=== PATIENT | female | born 1990 | race Caucasian/White ===

== ENCOUNTER 2017-12-05 12:26 | Emergency (ER) | payer SELFPAY ==
[2017-12-05 12:40] VITALS: BMI 20.1
--- NOTE | 2017-12-05 13:14 | PDOC ---
Attending Attestation - Resident Resident Name: Michelle Christian - ED Attending Attestation I have performed the following: I have examined & evaluated the patient, The case was reviewed & discussed with the resident, I agree w/resident's findings & plan, Exceptions are as noted - HPI HPI: 12/05/17 13:12 27y , 2 months late for period, presents with spotting x 2 days bu tnow increased cramping and bleeding. Pt denies any fever/chills, flank pain. has not checked her status at home. on exam pt well appearing, no distress abd soft nontender pelvic exam reveals moderate amount of dark blood in the vaginal vault, os closed, no lesions or other discharge. will r/o /threatened ab vs dub will obtain pelvic US - Physicial Exam PE: 12/05/17 16:41 see above - Medical Decision Making 12/05/17 16:41 pts beta at 9000 US shows pole and IUP without fRH will dc the pt with outpatient x ray developer fu return precautions were discussed
--- NOTE | 2017-12-05 13:20 | PDOC ---
History of Present Illness - General Chief Complaint: Vaginal Bleeding Stated Complaint: VAGINAL BLEEDING () Time Seen by Provider: 12/05/17 12:50 History Source: Patient Exam Limitations: Language Barrier - History of Present Illness Initial Comments: 12/05/17 13:18 27 y/o F (all delivered via , full-term, without complications) presents to the ED c/o vaginal spotting x 2 days. As per pt, she noticed spotting over the past two days, and today, increased bleeding and cramping in her umbilical and suprapubic region. Pt states that her LMP is two months late and she did not use a test at home. Pt is sexually active with and is not on control. First day of her LMP was 10/06/17. Pt states that she has had the same exact sx with her past pregnancies. She also endorses generalized GREY, dizziness and nausea without emesis during this time. Denies fever, chills, or any changes in urinary or bowel function. PMH: as above PsxH: three c-sections meds: denies allergies: NKDA FH: denies SH: denies cigarette, alcohol, or recreational drug use 12/05/17 13:43 Past History - Past Medical History Allergies/Adverse Reactions: Allergies Allergy/AdvReac Type Severity Reaction Status Date / Time No Known Allergies Allergy Verified 12/05/17 12:40 Home Medications: Ambulatory Orders NK [No Known Home Medication] 12/05/17 Asthma: No Cancer: No Cardiac Disorders: No COPD: No Diabetes: No HTN: No Seizures: No Thyroid Disease: No - Reproductive History Is Patient Now?: Yes (#): 4 Para: 3 - Suicide/Smoking/Psychosocial Hx Smoking History: Never smoked Have you smoked in the past 12 months: No Hx Alcohol Use: No Drug/Substance Use Hx: No Substance Use Type: None Hx Substance Use Treatment: No Review of Systems - Review of Systems Able to Perform ROS?: Yes Is the patient limited Kinyarwanda proficient: Yes Cardiac (ROS): Yes: Other (dizziness) : Yes: Other (vaginal bleeding) Neurological: Yes: Headache All Other Systems: Reviewed and Negative *Physical Exam - Vital Signs Last Vital Signs Temp Pulse Resp BP Pulse Ox 98 F 74 18 115/76 99 12/05/17 12:37 12/05/17 12:37 12/05/17 12:37 12/05/17 12:37 12/05/17 12:37 - Physical Exam General Appearance: Yes: Nourished, Other (in no acute distress) HEENT: positive: EOMI, [place] Neck: positive: Lymphadenopathy (R) Respiratory/Chest: positive: Lungs Clear, Normal Breath Sounds Cardiovascular: positive: Regular Rhythm, Regular Rate, S1, S2 Vascular Pulses: Dorsalis-Pedis (R): 2+, Doralis-Pedis (L): 2+ Female Pelvic Exam: positive: cervical os closed, normal adnexa, vaginal bleeding (+blood in vaginal vault) Gastrointestinal/Abdominal: positive: Normal Bowel Sounds, Soft Extremity: positive: Normal Range of Motion Neurologic: 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 Current main differential - . Pt with hx similar sx with all past pregnancies, with blood in vaginal vault. Will check b hcg quant and reassess. Will order the following -CBC with diff -CMP -B hcg quant -UA - in case of asymp bacteruria, will need to tx -Type and screen Will give the following -Zofran 4mg x 1 -Tylenol 650mg PO x 1 12/05/17 14:52 Pt currently 4-5 weeks as per Bhcg quant - ~9269. Informed patient, answered questions. Will go to [facility] Otherwise, CBC, BMP, UA WNL 12/05/17 16:41 US - feta *DC/Admit/Observation/Transfer Diagnosis at time of Disposition: Early stage of , Abdominal pain during in first trimester - Discharge Dispostion Disposition: HOME Condition at time of disposition: Stable Admit: No - Referrals Referrals: Nyla Atkinson MD [Staff Physician] - - Patient Instructions Additional Instructions: You were recently in the hospital because you had vaginal bleeding. We ran lab tests and found that you were . You had an ultrasound done which showed you are 5 weeks . It is early in your to visualize parts of your baby, so we recommend you follow up with an shield installer in a week for another ultrasound. We are giving you a referral for Dr. Walter. The phone number is [phone]. Please start taking vitamins. We will send a prescription to your pharmacy. If you develop more vaginal bleeding, see clots, or develop severe abdominal pain, or fever/chills, please come back to the hospital immediately. Print Language: THAI - Post Discharge Activity
[2017-12-05] MEDS ORDERED: ACETAMINOPHEN 325 MG TABLET (FP) PO ONE (13:37)
[2017-12-05] MEDS ORDERED: ONDANSETRON *ODT* 4 MG TABLET SL ONE (13:37)
[2017-12-05] MEDS ORDERED: ACETAMINOPHEN 325 MG TABLET (FP) ONE (13:53)
[2017-12-05] MEDS ORDERED: ONDANSETRON *ODT* 4 MG TABLET ONE (13:53)
[2017-12-05 13:55] LABS: BASO % 0.4 % (0-2.0); EOS % 0.5 % (0-4.5); HEMATOCRIT 39.4 % (32.4-45.2); LYMPH % 19.4 % (8-40); MCH 29.5 pg (25.7-33.7); MEAN CELL VOLUME 89.2 fl (80-96); MEAN PLT VOLUME 8.2 fl (7.5-11.1); MONO % 4.8 % (3.8-10.2); NEUT % 74.9 % (42.8-82.8); PLATELET COUNT 250 K/MM3 (134-434); RBC 4.41 M/mm3 (3.60-5.2); RDW 14.5 % (11.6-15.6); WHITE BLOOD COUNT 9.6 K/mm3 (4.0-10.0)
[2017-12-05 13:59] LABS: URINE APPEARANCE CLEAR; URINE BILIRUBIN NEGATIVE (NEGATIVE); URINE BLOOD 2+ (NEGATIVE); URINE COLOR YELLOW; URINE GLUCOSE (UA) NEGATIVE (NEGATIVE); URINE KETONE NEGATIVE (NEGATIVE); URINE LEUK ESTERASE NEGATIVE (NEGATIVE); URINE NITRITE NEGATIVE (NEGATIVE); URINE PROTEIN NEGATIVE (NEGATIVE); URINE UROBILINOGEN NEGATIVE mg/dL (0.2-1.0)
[2017-12-05 14:03] LABS: EPI CELLS RARE /HPF (FEW); URINE MUCUS FEW
[2017-12-05 14:26] LABS: ALBUMIN 3.9 g/dl (3.4-5.0); ALK PHOS 109 U/L (45-117); ANION GAP 9 (8-16); BILIRUBIN,TOTAL 0.6 mg/dL (0.2-1.0); BLOOD UREA NITROGEN 8 mg/dL (7-18); CALCIUM 8.1 mg/dL (8.5-10.1); CHLORIDE 108 mmol/L (98-107); CO2 24 mmol/L (21-32); CREATININE 0.6 mg/dL (0.55-1.02); GLUCOSE,RANDOM 82 mg/dL (74-106); POTASSIUM 3.5 mmol/L (3.5-5.1); SGOT/AST 10 U/L (15-37); SGPT/ALT 15 U/L (12-78); SODIUM 141 mmol/L (136-145); TOT PROT 7.1 g/dl (6.4-8.2)
[2017-12-05 17:20] VITALS: BP 105/72; PULSE 84; TEMP 98.5
== END 2017-12-05 17:20 | disposition home or self-care (01) ==
LOC: JER 12:26
DX: O26.891 Other specified pregnancy related conditions, first trimester (principal); O02.1 Missed abortion; Z3A.01 Less than 8 weeks gestation of pregnancy
CPT/HCPCS: 36415; 76801-TC; 80053; 81003; 81015; 84702; 85025; 99282-25

== ENCOUNTER 2017-12-05 20:55 | Emergency (ER) | payer OTHER ==
[2017-12-05 21:28] VITALS: TEMP 97.5; BMI 29.2
--- NOTE | 2017-12-05 21:53 | PDOC ---
Attending Attestation - Resident Resident Name: Michelle Christian - ED Attending Attestation I have performed the following: I have examined & evaluated the patient, The case was reviewed & discussed with the resident, I agree w/resident's findings & plan, Exceptions are as noted - HPI HPI: 12/05/17 22:12 This 27 yo female was seen earlier today at our ER for early and spotting. Her bhcg was above 9000, her blood type was rh positive and her pelvic US showed gestational sac of 5 weeks with no heart tones. She returns for continued vaginal bleeding 12/06/17 00:35 - Physicial Exam PE: 12/06/17 00:35 wnwd 27 yo female with vaginal bleeding head ncat neck supple lungs cta b/l cvs [id number] abd no rebound,no guarding pelvic vagianl bleeding ext no e/c/c - Medical Decision Making 12/06/17 23:06 imp threatened AB plan followup with ob.curriculum specialist and repeat bhcg and US
[2017-12-05] MEDS ORDERED: ACETAMINOPHEN 1000 MG/100 ML VIAL (NON FORMULARY) IVPB ONE (21:58)
[2017-12-05] MEDS ORDERED: ONDANSETRON *ODT* 4 MG TABLET SL ONE (21:59)
[2017-12-05] MEDS ORDERED: SODIUM CHLORIDE 1,000 ML IV SCH (22:00)
[2017-12-05] MEDS ORDERED: ACETAMINOPHEN INJECTION 100 ML IVPB ONE (22:01)
--- NOTE | 2017-12-05 22:05 | PDOC ---
History of Present Illness - General Chief Complaint: Pain, Acute Stated Complaint: VAG BLEEDING - Time Seen by Provider: 12/05/17 21:52 History Source: Patient Exam Limitations: Language Barrier - History of Present Illness Initial Comments: 12/05/17 22:02 27 y/o F (all delivered via , full-term, without complications), here earlier this evening for vaginal spotting, represents to the ED c/o intense contractions over the past two hours. As per pt, after discharge, she developed strong contractions every 3-5 seconds, with expulsion of blood and clots. Pt states that she feels dizzy and has had two episodes of NBNB emesis. Denies GREY, fever, chills, or changes in urinary or bowel habits. Upon initial discharge today, pt found to have B-hcg 9269. However no heart tones noted on ob sono. PMH: as above PsxH: three c-sections meds: denies allergies: NKDA FH: denies SH: denies cigarette, alcohol, or recreational drug use Past History - Past Medical History Allergies/Adverse Reactions: Allergies Allergy/AdvReac Type Severity Reaction Status Date / Time No Known Allergies Allergy Verified 12/05/17 12:40 Home Medications: Ambulatory Orders Vit Calc,Iron,Folic [ Vitamins] 1 each PO DAILY #30 tablet Asthma: No Cancer: No Cardiac Disorders: No COPD: No Diabetes: No HTN: No Seizures: No Thyroid Disease: No - Reproductive History (#): 4 Para: 3 - Suicide/Smoking/Psychosocial Hx Smoking History: Never smoked Have you smoked in the past 12 months: No Information on smoking cessation initiated: No Hx Alcohol Use: No Drug/Substance Use Hx: No Substance Use Type: None Hx Substance Use Treatment: No *Physical Exam - Vital Signs Last Vital Signs Temp Pulse Resp BP Pulse Ox 97.5 F L 72 20 98/65 100 12/05/17 21:26 12/05/17 21:26 12/05/17 21:26 12/05/17 21:26 12/05/17 21:26 Medical Decision Making - Medical Decision Making 12/05/17 22:08 27 y/o F (all delivered via , full-term, without complications), here earlier this evening for vaginal spotting, represents to the ED c/o intense contractions over the past two hours with bleeding and passage of clots. Most likely miscarriage. Will give the following -Zofran 4mg SL -IVF -Ofirmev 1g 12/05/17 23:55 Pt for discharge, with rabbet operator follow up *DC/Admit/Observation/Transfer Diagnosis at time of Disposition: Miscarriage - Discharge Dispostion Disposition: HOME Condition at time of disposition: Improved Admit: No - Referrals - Patient Instructions Additional Instructions: You returned to the hospital for bleeding, cramping and passage of clots. You most likely had a miscarriage. Please drink lots of fluids. You may take Tylenol for your pain. You will experience pain and cramping as your body passes the clots. Please follow up with a taper machine this week. Make an appointment at [facility] care at [address] [place] [address]. [phone] We hope you feel better soon. - Post Discharge Activity
[2017-12-05] MEDS ORDERED: ONDANSETRON *ODT* 4 MG TABLET ONE (22:21)
[2017-12-06 00:34] VITALS: BP 100/65; PULSE 73
== END 2017-12-06 00:35 | disposition home or self-care (01) ==
LOC: JER 20:55
DX: O26.891 Other specified pregnancy related conditions, first trimester (principal); R10.30 Lower abdominal pain, unspecified; Z3A.01 Less than 8 weeks gestation of pregnancy
CPT/HCPCS: 99282-25

== ENCOUNTER 2019-06-08 23:10 | Emergency (ER) | payer OTHER ==
[2019-06-08 23:33] VITALS: TEMP 97.8; BMI 21.6
--- NOTE | 2019-06-08 23:33 | PDOC ---
History of Present Illness - General Chief Complaint: Vaginal Bleeding Stated Complaint: BLEEDING Time Seen by Provider: 06/08/19 23:33 History Source: Patient Exam Limitations: No Limitations - History of Present Illness Initial Comments: Pt is a 28 yo F, (1 spontaneous ) @~3 months by LMP (03/17/2019) who is presenting with lower pelvic pain and vaginal bleeding since this morning. Pt states she had a positive at-home test about 2 months ago, but has not been able to see an OB due to not having insurance. Pt states the pain is cramping and constant, and the bleeding is now associated with the passage of clots, which prompted her ED visit. Pt complains now of lower abdominal pain and mild headache. Pt denies any fevers/chills, light-headedness, vision changes , syncope, chest pain, palpitations, SOB, nausea/vomiting, urinary symptoms, diarrhea/constipation, or leg swelling. Allergies: NKDA PCP: None OB: None Social: Pt denies any cigarette, alcohol, or drug use. Pt denies any recent travel or sick contacts. Surgical: 3 c-sections Family: no relevant history. 06/08/19 23:49 06/09/19 00:15 Past History - Travel Traveled outside of the country in the last 30 days: No Close contact w/someone who was outside of country & ill: No - Past Medical History Allergies/Adverse Reactions: Allergies Allergy/AdvReac Type Severity Reaction Status Date / Time No Known Allergies Allergy Verified 12/05/17 12:40 Home Medications: Ambulatory Orders Vit Calc,Iron,Folic [ Vitamins] 1 each PO DAILY #30 tablet Asthma: No Cancer: No Cardiac Disorders: No COPD: No Diabetes: No HTN: No Seizures: No Thyroid Disease: No - Reproductive History (#): 4 Para: 3 - Immunization History Immunization Up to Date: Yes - Suicide/Smoking/Psychosocial Hx Smoking History: Unknown if ever smoked Have you smoked in the past 12 months: No Information on smoking cessation initiated: No Hx Alcohol Use: No Drug/Substance Use Hx: No Substance Use Type: None Hx Substance Use Treatment: No Review of Systems - Review of Systems Able to Perform ROS?: Yes Is the patient limited Kyrgyz proficient: No Constitutional: Yes: Weight Stable. No: Chills, Fever, Loss of Appetite, Malaise, Weakness HEENTM: No: Recent change in vision, Nose Congestion, Throat Pain, Difficulty Swallowing Respiratory: No: Cough, Shortness of Breath Cardiac (ROS): No: Chest Pain, Edema, Irregular Heart Rate, Lightheadedness, Palpitations, Syncope, Chest Tightness ABD/GI: No: Constipated, Diarrhea, Nausea, Poor Appetite, Poor Fluid Intake, Vomiting : No: Burning, Dysuria, Frequency, Pain, Urgency Musculoskeletal: No: Muscle Pain, Muscle Weakness Integumentary: No: Rash Neurological: Yes: See HPI, Headache. No: Numbness, Weakness, Unsteady Gait, Dizziness Psychiatric: No: Sleep Pattern Change, Change in Appetite Endocrine: No: Increased Urine, Change in Weight Hematologic/Lymphatic: No: Anemia, Blood Clots, Easy Bleeding, Easy Bruising All Other Systems: Reviewed and Negative *Physical Exam - Vital Signs Last Vital Signs Temp Pulse Resp BP Pulse Ox 97.8 F 81 16 122/77 98 06/08/19 23:11 06/08/19 23:11 06/08/19 23:11 06/08/19 23:11 06/08/19 23:11 - Physical Exam Comments: Vitals stable, pt afebrile. Pt appears uncomfortable, thin body habitus. Pt alert and oriented x3. basketball scout generally intact, muscular strength and sensation intact. No midline spinal tenderness, step-offs, or crepitus. Head normocephalic, atraumatic. Eyes PERRLA, EOMI. Oropharynx without erythema or exudates, no LAD b/l. No nasal congestion, hearing intact. Clear heart sounds, S1/S2, no JVD, b/l pedal edema, or heart murmur. Clear lung sounds, no respiratory distress, wheezes, crackles, or accessory muscle use. Diffuse lower abdominal TTP, worst in suprapubic. No CVA tenderness to palpation , no rebound, no guarding. Abdomen soft, non-distended, and with normoactive bowel sounds. Cervix closed, passage of blood in vaginal canal with clots. Skin without jaundice or rash. 00:26 ED Treatment Course - LABORATORY CBC & Chemistry Diagram: 06/08/19 23:49 06/08/19 23:49 Medical Decision Making - Medical Decision Making Pt was seen at bedside, also will be seen by attending Dr. Sanchez. Pt presenting with complaints of vaginal bleeding in the setting of ~3 months. Pt has had prior miscarriage at ~2 months gestation. Passage of clots - - missed vs incomplete vs ectopic Bedside US showed empty gestational sac. Will check H/H, beta-hcg, type and screen, and transvaginal US to evaluate for ectopic. Provided 1 L IV NS, 1 g ofirmev, and 4 mg IV zofran for improvement of discomfort and nausea. Will continue to reassess pt and monitor for symptomatic improvement. 06/09/19 00:29 CBC and CMP WNL Beta 4,000 Pt going for TVUS 06/09/19 01:19 Provided 600 mg PO motrin for pain. US showed likely blighted ovum, no ectopic or free fluid. No evidence of torsion. Advised pt to f/u with [facility] tomorrow morning to make an appointment. Strict return precautions provided with pt understanding. 06/09/19 03:13 *DC/Admit/Observation/Transfer Diagnosis at time of Disposition: Blighted ovum, Threatened - Discharge Dispostion Disposition: HOME Condition at time of disposition: Improved Decision to Admit order: No - Referrals Referrals: Danyel White MD [Staff Physician] - - Patient Instructions Printed Discharge Instructions: DI for Threatened Additional Instructions: You were seen in the ER today for vaginal bleeding. The results of your labs and imaging today showed normal blood levels, but no viable . You are likely going through a miscarriage at this time. Please follow-up with your primary care doctor and [facility] tomorrow to discuss your visit and make sure your symptoms have improved. Please return to the ER if you have any worsening pain, bleeding through 1-2 pads per hour, development of fevers or chills, loss of consciousness, inability to tolerate food or fluids, or any other concerns. You can take tylenol and motrin every 4-6 hours as needed for pain. - Post Discharge Activity
[2019-06-08 23:59] LABS: BASO % 0.4 % (0-2.0); EOS % 0.6 % (0-4.5); HEMATOCRIT 38.6 % (32.4-45.2); HEMOGLOBIN 12.9 GM/dL (10.7-15.3); MCH 29.8 pg (25.7-33.7); MCHC 33.4 g/dl (32.0-36.0); MEAN CELL VOLUME 89.2 fl (80-96); MEAN PLT VOLUME 8.4 fl (7.5-11.1); MONO % 5.5 % (3.8-10.2); NEUT % 70.5 % (42.8-82.8); PLATELET COUNT 222 K/MM3 (134-434); RBC 4.33 M/mm3 (3.60-5.2); RDW 15.4 % (11.6-15.6); WHITE BLOOD COUNT 10.4 K/mm3 (4.0-10.0)
[2019-06-09] MEDS ORDERED: ACETAMINOPHEN 1000 MG/100 ML VIAL (NON FORMULARY) IVPB ONE (00:03)
[2019-06-09] MEDS ORDERED: SODIUM CHLORIDE 1,000 ML IV STA (00:03)
[2019-06-09] MEDS ORDERED: ONDANSETRON 4 MG/2 ML VIAL IVPUSH ONE (00:03)
--- NOTE | 2019-06-09 00:21 | PDOC ---
Documentation entered by Nicole Walls SCRIBE, acting as scribe for Shanelle Sanchez DO. Shanelle Sanchez DO: This documentation has been prepared by the Kavita nichols Brenda, SCRIBE, under my direction and personally reviewed by me in its entirety. I confirm that the documentation accurately reflects all work, treatment, procedures, and medical decision making performed by me. Attending Attestation - Resident Resident Name: Felicia Burton - ED Attending Attestation I have performed the following: I have examined & evaluated the patient, The case was reviewed & discussed with the resident, I agree w/resident's findings & plan, Exceptions are as noted - HPI HPI: 06/09/19 00:22 The patient is a 28 year old female (), with a significant PMH of who presents to the emergency department with vaginal bleeding since this afternoon. As per patient, she experienced large amounts of vaginal bleeding accompanied by clots and lower abdominal cramping. Patient reports using 2 pads by 1:00pm, and continuously more every hour. The patient denies chest pain, shortness of breath, headache and dizziness. Denies fever, chills, nausea, vomiting, diarrhea and constipation. Denies dysuria, frequency, urgency. Allergies: NKA Past surgical history: three c-sections Social history: denies cigarette, alcohol, or recreational drug use PCP: Wesley Benitez - Physicial Exam PE: 06/09/19 00:22 GENERAL: Awake, alert, and fully oriented, in no acute distress HEAD: No signs of trauma NECK: Normal ROM, supple, no lymphadenopathy, JVD, or masses LUNGS: Breath sounds equal, clear to auscultation bilaterally. No wheezes, and no crackles HEART: Regular rate and rhythm, normal S1 and S2, no murmurs, rubs or gallops ABDOMEN: (+) Superpubic tenderness. Soft, normoactive bowel sounds. No guarding, no rebound. No masses EXTREMITIES: Normal range of motion, no edema. No clubbing or cyanosis. No cords, erythema, or tenderness NEUROLOGICAL: Cranial nerves II through XII grossly intact. Normal speech. SKIN: Warm, Dry, normal turgor, no rashes or lesions noted. - Medical Decision Making 06/09/19 00:17 I, Dr. Shanelle Sanchez, DO, attest that this document has been prepared under my direction and personally reviewed by me in its entirety. I further attest, that it accurately reflects all work, treatment, procedures and medical decision -making performed by me. 06/09/19 00:17 a/p 28yo at about 12 weeks gestation with heavy vaginal bleeding today - passing clots and wearing 5 pads today -no lightheaded or dizziness -cramping in abd -pocus transabd ultrasound did not confirm an IUP but visualized a gestational sac - sending for formal tvus for better visualization -blood in vaginal vault, os closed per resident -O+ blood type -will send labs, beta hcg, tvus -suspect missed ab vs blighted ovum - will send labs, ultrasound -will monitor, tylenol, ivf hydration -reassess 06/09/19 01:19 beta 4229 pending ultrasound 06/09/19 01:47 hgb stable pending ultrasound official read and type and screen
[2019-06-09] MEDS ORDERED: ACETAMINOPHEN INJECTION 100 ML IVPB ONE (00:25)
[2019-06-09] MEDS ORDERED: ONDANSETRON 4 MG/2 ML VIAL ONE (00:25)
[2019-06-09 00:29] LABS: ALBUMIN 3.8 g/dl (3.4-5.0); BILIRUBIN,TOTAL 0.3 mg/dL (0.2-1); BLOOD UREA NITROGEN 12.6 mg/dL (7-18); CALCIUM 9.1 mg/dL (8.5-10.1); CREATININE 0.6 mg/dL (0.55-1.3); POTASSIUM 3.7 mmol/L (3.5-5.1); TOT PROT 7.1 g/dl (6.4-8.2)
[2019-06-09] MEDS ORDERED: IBUPROFEN 600 MG TABLET (FP) PO ONE ×2 (02:17→02:19)
[2019-06-09 03:37] VITALS: BP 115/76; PULSE 80
== END 2019-06-09 03:39 | disposition home or self-care (01) ==
LOC: JER 23:10
PROC: 3E033GC Introduction of Other Therapeutic Substance into Peripheral Vein, Percutaneous Approach (ICD-10-PCS; principal; 2019-06-08)
PROC: 3E033NZ Introduction of Analgesics, Hypnotics, Sedatives into Peripheral Vein, Percutaneous Approach (ICD-10-PCS; 2019-06-08)
PROC: BY49ZZZ Ultrasonography of First Trimester, Single Fetus (ICD-10-PCS; 2019-06-08)
DX: O26.891 Other specified pregnancy related conditions, first trimester (principal); O02.0 Blighted ovum and nonhydatidiform mole; Z3A.12 12 weeks gestation of pregnancy
CPT/HCPCS: 36415; 76815; 76817-TC; 80053; 84702; 85025; 86850; 86900; 86901; 99283-25; J0131; J7030

== ENCOUNTER 2020-07-04 14:30 | Inpatient (IN) | payer OTHER ==
--- OUTSIDE RECORDS SUMMARY | 2020-07-02 08:03 | XMS ---
:1990 Author Organization [facility] Support Name Relationship Address Phone UE, UNEMPLOYED Unavailable Unavailable Unavailable UE Unavailable Unavailable Unavailable [employer] [address] [place] [address] Re-disclosure Warning The records that you are about to access may contain information from federally- assisted alcohol or drug abuse programs. If such information is present, then the following federally mandated warning applies: This information has been disclosed to you from records protected by federal confidentiality rules (42 CFR part 2). The federal rules prohibit you from making any further disclosure of this information unless further disclosure is expressly permitted by the written consent of the person to whom it pertains or as otherwise permitted by 42 CFR part 2. A general authorization for the release of medical or other information is NOT sufficient for this purpose. The Federal rules restrict any use of the information to criminally investigate or prosecute any alcohol or drug abuse patient.The records that you are about to access may contain highly sensitive health information, the redisclosure of which is protected by Article 27-F of the [facility] Public Health law. If you continue you may haveaccess to information: Regarding HIV / AIDS; Provided by facilities licensed or operated by the [facility] Office of Mental Health; or Provided by the [facility] Office for People With Developmental Disabilities. If such information is present, then the following [facility] mandated warning applies: This information has been disclosed to you from confidential records which are protected by state law. State law prohibits you from making any further disclosure of this information without the specific written consent of the person to whom it pertains, or as otherwise permitted by law. Any unauthorized further disclosure in violation of state law may result in a fine or long term sentence or both. A general authorization for the release of medical or other information is NOT sufficient authorization for further disclosure. Insurance Providers Payer name Policy type Policy ID Covered Covered constitution party's Policy P trisha / Coverage constitution party ID relationship to Parra Inf ormation type parra MARCIN [id number] SP [id number] [place] [address] NON CAP MEDICAID [id number] SP [id number]
[2020-07-04] MEDS ORDERED: ONDANSETRON 4 MG/2 ML VIAL IVPUSH PRN (15:53)
[2020-07-04] MEDS ORDERED: morphine SULFATE/PF 0.5 MG/ML (2cc Syringe - QUVA) EP ONE (15:53)
[2020-07-04] MEDS ORDERED: morphine SULFATE/PF 0.5 MG/ML (2cc Syringe - QUVA) ONE (16:24)
[2020-07-04] MEDS ORDERED: CITRIC ACID/SODIUM CITRATE 30 ML UNIT-DOSE CUP PO ONE (16:41)
[2020-07-04 16:43] VITALS: BMI 27.1
[2020-07-04] MEDS ORDERED: ELECTROLYTE-148 SOLN 1,000 ML IV SCH (16:45)
--- NOTE | 2020-07-04 16:48 | HP ---
Past Medical History - Primary Care Physician PCP:: Danyel White - Admission Chief Complaint: 39 weeks , previous c/s , request of repeat c/s History of Present Illness: 29 yo f g 6 p3 0 2 3 39 weeks, with 3 previous c/s requesting repeat c/s, ,fhr cat 1, cx clp , risks associated with multiple repeat c/s discussed , risks of bowel, bladder , hemorrhage. post op complication History Source: Patient Limitations to Obtaining History: Language Barrier - Past Medical History ...: 6 ...Para: 3 ...Term: 3 ...: 0 ...Spon : 2 ...Induced : 0 ...Living Children: 3 ...Multiple Gestation: 0 ...LMP: 10/04/19 ... Weeks Gestation by Dates: 39.1 ...EDC by Dates: 07/10/20 Heme/Onc: Yes: Anemia - Past Surgical History Past Surgical History: Yes: Hx Myomectomy: No Hx Transabdominal Cerclage: No - Smoking History Smoking history: Never smoked Have you smoked in the past 12 months: No - Alcohol/Substance Use Hx Alcohol Use: No - Social History Usual Living Arrangement: Yes: With Spouse History of Recent Travel: No Home Medications - Allergies Allergies/Adverse Reactions: Allergies Allergy/AdvReac Type Severity Reaction Status Date / Time No Known Allergies Allergy Verified 07/04/20 16:36 - Home Medications Home Medications: Ambulatory Orders Pnv No.95/Ferrous Fum/Folic AC [ Formula] 1 each PO DAILY 07/04/20 Review of Systems - Review of Systems Constitutional: reports: No Symptoms Eyes: reports: No Symptoms HENT: reports: No Symptoms Neck: reports: No Symptoms Cardiovascular: reports: No Symptoms Respiratory: reports: No Symptoms Gastrointestinal: reports: No Symptoms Genitourinary: reports: No Symptoms Breasts: reports: No Symptoms Reported Musculoskeletal: reports: No Symptoms Integumentary: reports: No Symptoms Neurological: reports: No Symptoms Endocrine: reports: No Symptoms Hematology/Lymphatic: reports: No Symptoms Psychiatric: reports: No Symptoms Physical Exam - Maternity Vital Signs: Vital Signs Temperature 98.2 F 07/04/20 16:15 Pulse Rate 69 07/04/20 16:15 Respiratory Rate 18 07/04/20 16:15 Blood Pressure 124/74 07/04/20 16:15 O2 Sat by Pulse Oximetry (%) Constitutional: Yes: Well Nourished, No Distress, Calm Eyes: Yes: WNL, Conjunctiva Clear, EOM Intact HENT: Yes: WNL, Atraumatic, Normocephalic Neck: Yes: WNL, Supple, Trachea Midline Cardiovascular: Yes: WNL, Regular Rate and Rhythm Breast(s): Yes: WNL - Abdominal Exam/OB Fundal Height: 38 Number of Fetuses: Single Presentation: Vertex Contractions: No Intensity: Unaware Monitor Mode: External Heart Rate Location: [facility] Category: I Accelerations: Non-Uniform Decelerations: None - Vaginal Exam/OB Vaginal Bleeding: No Speculum Exam: No Dilatation (cm): closed Effacement (%): 0 Amniotic Membrane Status: Intact Presentation: Vertex/Position Station: -3 - Physical Exam Musculoskeletal: Yes: WNL Extremities: Yes: WNL Edema: Yes Edema: LLE: Trace, RLE: Trace Deep Tendon Reflex Grade: Normal +2 ...Motor Strength: WNL Psychiatric: Yes: WNL Hemorrhage Risk Assessment - Risk Factors Medium Risk Factors: Yes: Prior , uterine surgery,or multiple laparotomies Risk Score: 1 Risk Level: Medium Risk Problem List - Problems (1) with 39 completed weeks gestation Code(s): Z3A.39 - 39 WEEKS GESTATION OF (2) Previous section complicating Code(s): O34.219 - MATERNAL CARE FOR UNSP TYPE SCAR FROM PREVIOUS DEL Assessment/Plan admit for repeat c/s, risks has been discussed with patient
[2020-07-04] MEDS ORDERED: SODIUM CHLORIDE 0.9% P/F 10 ML VIAL IJ ONE (17:05)
[2020-07-04] MEDS ORDERED: ceFAZolin SODIUM 1 GM VIAL ONE (17:05)
[2020-07-04] MEDS ORDERED: OXYTOCIN 10 UNITS/ML VIAL ONE ×2 (17:41→18:01)
[2020-07-04] MEDS ORDERED: BENZOCAINE 28 GM HEMORRHOIDAL OINTMENT PR PRN (18:51)
[2020-07-04] MEDS ORDERED: diphenhydrAMINE HCL 25 MG CAPSULE (FP) PO PRN (18:51)
[2020-07-04] MEDS ORDERED: BENZOCAINE 20% 57 GM BOTTLE TP PRN (18:51)
[2020-07-04] MEDS ORDERED: WITCH HAZEL 50% (TUCKS) 40 PAD/JAR PAD TP PRN (18:51)
[2020-07-04] MEDS ORDERED: oxyCODONE HCL 5 MG TABLET PO PRN ×2 (18:51)
[2020-07-04] MEDS ORDERED: METHYLERGONOVINE MALEATE 0.2 MG/1 ML AMP IM PRN (18:51)
[2020-07-04] MEDS ORDERED: IBUPROFEN 800 MG/8 ML IJ IVPB PRN (18:51)
--- NOTE | 2020-07-04 18:54 | OP ---
Operative Note - Note: Operative Date: 07/04/20 Operation: previous c/s Findings: live baby girl 9/ LOT, clear fluid Surgeon: Danyel White [employer]: Ramiro Newell Anesthesiologist/VISCOSITY TESTER: Ken Almonte Anesthesia: Spinal Specimens Removed: placenta Estimated Blood Loss (mls): 500 Drains & Tubes with Location: singh Blood Volume Replaced (mls): 0 Operative Report Dictated: Yes
[2020-07-04] MEDS ORDERED: OXYTOCIN 20 UNITS in 0.9% NS 20 UNIT/1,000 ML INFUS.BAG IV SCH (19:00)
[2020-07-04] MEDS ORDERED: DEXTROSE 5%-LACTATED RINGERS 1,000 ML IV SCH (19:00)
[2020-07-05] MEDS: CEFAZOLIN 1 GM/D5W 1 GM/50 ML BAG IVPB SCH ×2 (01:54→09:17)
--- NOTE | 2020-07-05 06:35 | PN ---
Progress Note (short form) - Note Progress Note: pod 1 , no c/o , no excess vaginal bleeding Last Vital Signs Temp Pulse Resp BP Pulse Ox 98.7 F 59 L 18 113/81 97 07/05/20 06:00 07/05/20 06:00 07/05/20 06:00 07/05/20 06:00 07/04/20 22:00 abdomen soft, no distension, no cva Bs present incision dry, clean no calf tenderness no excess vaginal bleeding plan ambulate, cbc , advance diet DVt prophylaxis Problem List - Problems (1) with 39 completed weeks gestation Code(s): Z3A.39 - 39 WEEKS GESTATION OF (2) Previous section complicating Code(s): O34.219 - MATERNAL CARE FOR UNSP TYPE SCAR FROM PREVIOUS DEL
[2020-07-05 08:34] LABS: BASO % 0.2 % (0-2.0); EOS % 0.1 % (0-4.5); HEMATOCRIT 31.1 % (32.4-45.2); HEMOGLOBIN 10.2 GM/dL (10.7-15.3); LYMPH % 8.5 % (8-40); MCH 27.5 pg (25.7-33.7); MCHC 32.9 g/dl (32.0-36.0); MEAN CELL VOLUME 83.5 fl (80-96); MEAN PLT VOLUME 10.4 fl (7.5-11.1); MONO % 4.1 % (3.8-10.2); NEUT % 87.1 % (42.8-82.8); PLATELET COUNT 135 K/MM3 (134-434); RBC 3.72 M/mm3 (3.60-5.2); RDW 19.5 % (11.6-15.6); WHITE BLOOD COUNT 11.1 K/mm3 (4.0-10.0)
[2020-07-05] MEDS: ENOXAPARIN NA (PORCINE) 40 MG/0.4 ML DISP.SYRIN SQ SCH (09:17)
--- NOTE | 2020-07-05 10:23 | PN ---
Progress Note (short form) - Note Progress Note: Anesthesia postop note 29 y/o F s/p spinal anesthesia/duramorph for section POD#1, vss, aaox3, pain well controlled sensory motor intact distally. No anesthesia complications.
[2020-07-05] MEDS: SIMETHICONE 80 MG TAB.CHEW (FP) PO PRN ×2 (11:37→19:55)
[2020-07-05] MEDS: ACETAMINOPHEN 325 MG TABLET (FP) PO PRN ×2 (11:37→19:54)
[2020-07-05] MEDS: IBUPROFEN 600 MG TABLET (FP) PO PRN ×2 (11:38→19:55)
[2020-07-05] MEDS ORDERED: BISACODYL 10 MG SUPP.RECT PR PRN (18:51)
[2020-07-06] MEDS: IBUPROFEN 600 MG TABLET (FP) PO PRN ×2 (06:26→18:18)
[2020-07-06] MEDS: SIMETHICONE 80 MG TAB.CHEW (FP) PO PRN (06:27)
[2020-07-06] MEDS: ACETAMINOPHEN 325 MG TABLET (FP) PO PRN ×2 (06:27→18:18)
--- NOTE | 2020-07-06 07:02 | PN ---
Post Progress Note - Subjective Subjective: ambulating, tolerating PO, lochia decreased, voiding Post Day: 2 Type of Delivery: Repeat C/S Vital Signs: Vital Signs Temperature 98.0 F 07/05/20 21:00 Pulse Rate 63 07/05/20 21:00 Respiratory Rate 18 07/05/20 21:00 Blood Pressure 101/57 L 07/05/20 21:00 O2 Sat by Pulse Oximetry (%) 99 07/05/20 21:00 Breast Exam: Yes: Other Uterus: Yes: Fundus Firm Incision: Yes: Dressing dry and intact, Levon intact Abdomen/GI: Yes: Abdomen soft Lochia, amount: Small Extremities: Yes: Calves non-tender Perineum: Yes: Intact Activity: Ambulating - Labs Labs: CBC WBC 11.1 K/mm3 (4.0-10.0) H 07/05/20 07:33 RBC 3.72 M/mm3 (3.60-5.2) 07/05/20 07:33 Hgb 10.2 GM/dL (10.7-15.3) L 07/05/20 07:33 Hct 31.1 % (32.4-45.2) L 07/05/20 07:33 MCV 83.5 fl (80-96) 07/05/20 07:33 MCH 27.5 pg (25.7-33.7) 07/05/20 07:33 MCHC 32.9 g/dl (32.0-36.0) 07/05/20 07:33 RDW 19.5 % (11.6-15.6) H 07/05/20 07:33 Plt Count 135 K/MM3 (134-434) 07/05/20 07:33 MPV 10.4 fl (7.5-11.1) 07/05/20 07:33 Absolute Neuts (auto) 9.7 K/mm3 (1.5-8.0) H 07/05/20 07:33 Neutrophils % 87.1 % (42.8-82.8) H 07/05/20 07:33 Lymphocytes % 8.5 % (8-40) D 07/05/20 07:33 Monocytes % 4.1 % (3.8-10.2) 07/05/20 07:33 Eosinophils % 0.1 % (0-4.5) 07/05/20 07:33 Basophils % 0.2 % (0-2.0) 07/05/20 07:33 Nucleated RBC % 0 % (0-0) 07/05/20 07:33 Assessment/Plan POD # 2 in stable condition -Continue PP/post-op care -D/C home tomorrow
[2020-07-06] MEDS: ENOXAPARIN NA (PORCINE) 40 MG/0.4 ML DISP.SYRIN SQ SCH (10:15)
[2020-07-06 20:44] VITALS: PULSE 65
[2020-07-06] MEDS ORDERED: SENNOSIDES/DOCUSATE COMBO (SENNA PLUS) TABLET (UD) PO PRN (22:00)
[2020-07-07] MEDS: IBUPROFEN 600 MG TABLET (FP) PO PRN (05:46)
[2020-07-07] MEDS: ACETAMINOPHEN 325 MG TABLET (FP) PO PRN (05:47)
[2020-07-07 08:51] LABS: BASO % 0.3 % (0-2.0); HEMATOCRIT 28.7 % (32.4-45.2); HEMOGLOBIN 9.3 GM/dL (10.7-15.3); LYMPH % 15.9 % (8-40); MCHC 32.5 g/dl (32.0-36.0); MEAN CELL VOLUME 83.2 fl (80-96); MEAN PLT VOLUME 9.5 fl (7.5-11.1); MONO % 5.1 % (3.8-10.2); NEUT % 77.7 % (42.8-82.8); PLATELET COUNT 195 K/MM3 (134-434); RBC 3.45 M/mm3 (3.60-5.2); RDW 19.4 % (11.6-15.6); WHITE BLOOD COUNT 7.9 K/mm3 (4.0-10.0)
--- NOTE | 2020-07-07 09:25 | OP ---
DATE OF OPERATION: 07/04/2020 PREOPERATIVE DIAGNOSIS: 39 weeks, previous section, requests a repeat section. POSTOPERATIVE DIAGNOSIS: 39 weeks, previous section, requests a repeat section. PROCEDURE: Repeat low segment transverse section. SURGEON: Danyel White MD FUSE CUTTER: RACHELLE Driscoll ANESTHESIA: Spinal anesthesia. ANESTHESIOLOGIST: Ken Almonte MD ESTIMATED BLOOD LOSS: 500 mL FINDING: A live baby girl, 's 9, 9. Clear amniotic fluid. OPERATIVE REPORT: Patient was taken to the operating room. Under adequate spinal anesthesia abdomen and perineum were prepped and draped. Pfannenstiel abdominal skin incision was made. Abdominal wall was cut layer by layer until peritoneum was excised and incised. Upon entering the abdominal cavity lower uterine segment was identified and uterovesical fold of peritoneum established. Bladder was pushed down. Then a low transverse uterine incision was made with the knife and extended with bandage scissors. Amniotic sac was entered. Clear fluid. Head delivered from LOT position. Nasopharynx was suctioned. Live baby girl delivered without any difficulty. Placenta was delivered manually. Uterine cavity was cleaned of all the remaining tissue. Uterine incision was closed in 2 layers, first layer with 0 Vicryl continuous suture, the second layer with 0 Biosyn imbricating the first layer. Bladder flap was closed with 0 Biosyn continuous suture. Both tubes and ovaries were checked and were normal. No active bleeding was seen. All the lap pads, sponge and instrument counts were correct. Then peritoneum was closed with 0 Biosyn continuous suture. Muscles were brought together with interrupted suture of 0 Biosyn. Fascia was closed with 0 Biosyn continuous suture, subcutaneous fat with interrupted suture of 0 Biosyn and the skin was closed with manolo. Patient tolerated the procedure well, left the OR in good condition. Livan [id number]
[2020-07-07 09:28] VITALS: BP 105/55; TEMP 98.1
--- NOTE | 2020-07-07 09:41 | DS ---
Physical Examination Vital Signs: Vital Signs Temperature 98.1 F 07/07/20 09:27 Pulse Rate 65 07/07/20 09:27 Respiratory Rate 18 07/07/20 09:27 Blood Pressure 105/55 L 07/07/20 09:27 O2 Sat by Pulse Oximetry (%) 99 07/05/20 21:00 Findings/Remarks: Ambulating, tolerating PO, lochia decreased, passing flatus, voiding, breast feeding. PP/post-op precautions discussed. Constitutional: Yes: No Distress HENT: Yes: Atraumatic Neck: Yes: Supple Cardiovascular: Yes: Regular Rate and Rhythm Respiratory: Yes: Regular Gastrointestinal: Yes: WNL ...Rectal Exam: Yes: Other Renal/: Yes: Other Breast(s): Yes: Other Musculoskeletal: Yes: WNL Extremities: Yes: WNL Edema: Yes Edema: LLE: Trace, RLE: Trace Integumentary: Yes: WNL Wound/Incision: Yes: Well Approximated, Levon Intact Neurological: Yes: Alert, Oriented ...Motor Strength: WNL Psychiatric: Yes: Alert, Oriented Labs: CBC, BMP 07/07/20 08:22 Discharge Summary Problems reviewed: Yes Reason For Visit: REPEAT Current Active Problems with 39 completed weeks gestation (Acute) Previous section complicating (Acute) Procedures: Principal: section Hospital Course: Uncomplicated recovery Plan of Treatment: Follow up within week of discharge for incision check Condition: Stable - Instructions Diet, Activity, Other Instructions: Return to regular diet as tolerated, no strenuous activity, take medications as prescribed, follow up within a week from discharge Referrals: Basil Steward MD [Staff Physician] - Danyel White MD [Staff Physician] - Disposition: HOME - Home Medications Comprehensive Discharge Medication List: Ambulatory Orders Pnv No.95/Ferrous Fum/Folic AC [ Formula] 1 each PO DAILY 07/04/20 Acetaminophen [Tylenol] 650 mg PO Q6H PRN #30 capsule MDD 5 07/06/20 Ibuprofen 600 mg PO Q6H PRN #30 tablet 07/06/20 Oxycodone HCl [Roxicodone] 5 mg PO Q6H PRN 3 Days #12 tablet MDD 07/06/20
[2020-07-07] MEDS: ENOXAPARIN NA (PORCINE) 40 MG/0.4 ML DISP.SYRIN SQ SCH (09:58)
--- NOTE | 2020-07-10 19:13 | PATH ---
Surgical Pathology Report Patient Name: KELSIE TORRES Med. Rec. #: [id number] /Age/Gender: 1990 (Age: 29) / F Account: [id number] Location: [facility] OBS/CLINICAL SUPPORT MANAGER Taken: 07/04/2020 Received: 07/05/2020 Reported: 07/10/2020 Physicians: Danyel White M.D. Specimen(s) Received PLACENTA Clinical History , 39.1 weeks, repeat Final Diagnosis PLACENTA, SECTION: 455 G THIRD TRIMESTER PLACENTA, TRIVASCULAR UMBILICAL CORD WITH FOCAL ACUTE PHLEBITIS, AND MILD ACUTE CHORIOAMNIONITIS. Electronically Signed Jaci Jim M.D. Gross Description The specimen is received fresh labeled placenta and is a 455 gram, 18.5 x 1.0 x 2.5 cm. placenta with attached membranes and umbilical cord. The attached membranes are chahal, thick, cloudy and display focal circumarginate insertion. The umbilical cord measures 24 cm. in length and averages 1.1 cm. in diameter. The cord inserts eccentrically, 3 cm. to the nearest margin. No true knots or strictures are identified. Cut surface of the umbilical cord reveals 3 vessels. The surface is reed-blue with minimal fibrin deposition and appropriate caliber vessels. The maternal surface is red-brown with focal defects. Sectioning reveals red-brown, spongy parenchyma. No lesions are identified. Global Lead sections are submitted in three cassettes as follows: 1- membrane rolls and umbilical cord; 2-3- full thickness sections of placenta. 07/08/2020 [facility]07/08/2020
== END 2020-07-07 14:20 | disposition home or self-care (01) | DRG 540 ==
LOC: JLDR 15:25 → J3W 20:22
PROVIDERS: ADMIT Obstetrics & Gynecology; ATTEND Obstetrics & Gynecology
PROC: 10D00Z1 Extraction of Products of Conception, Low, Open Approach (ICD-10-PCS; principal; 2020-07-04)
DX: O82 Encounter for cesarean delivery without indication (principal); O34.211 Maternal care for low transverse scar from previous cesarean delivery; O99.03 Anemia complicating the puerperium; D64.9 Anemia, unspecified; Z3A.39 39 weeks gestation of pregnancy; Z37.0 Single live birth
CPT/HCPCS: 36415; 85025; 88307-TC